=== PATIENT | female | born 1980 | race Caucasian/White ===

== ENCOUNTER 2017-03-15 18:38 | Emergency (ER) | payer MEDICAID ==
[2017-03-15 21:36] VITALS: BP 115/80
== END 2017-03-15 21:36 | disposition home or self-care (01) ==
LOC: ED 18:38
DX: N10 Acute pyelonephritis (principal)
CPT/HCPCS: Q0162

== ENCOUNTER 2017-03-19 17:14 | Emergency (ER) | payer MEDICAID ==
[2017-03-19 18:54] VITALS: BP 130/75
== END 2017-03-19 18:54 | disposition home or self-care (01) ==
LOC: ED 17:14
DX: K92.1 Melena (principal); N12 Tubulo-interstitial nephritis, not specified as acute or chronic